=== PATIENT | female | born 1990 | race Hispanic/Latino ===

== ENCOUNTER 2025-06-29 18:19 | Observation (INO) | payer OTHER ==
[2025-06-29 19:21] LABS: #Basophils Less than 0.03 10x3/uL (0.0-0.2); #Eosinophils 0.06 10x3/uL (0.0-0.5); #Monocytes 0.41 10x3/uL (0.0-1.1); #Neutrophils 4.36 10x3/uL (1.5-8.4); %Basophils 0.3 % (0.0-2.0); %Eosinophils 0.9 % (0.0-6.0); %Lymphocytes 23.4 % (18.0-47.0); %Monocytes 6.4 % (0.0-10.0); %Neutrophils 68.5 % (40.0-75.0); Hematocrit 20.4 % (34.9-44.5); Hemoglobin 6.6 g/dL (12.0-15.5); Mean Corpuscular Hemoglobin 26.4 pg (27.0-33.0); Mean Corpuscular Volume 81.6 fL (81.6-98.3); Platelet Count 272 10x3/uL (150-450); Red Blood Cell (RBC) Count 2.50 10x6/uL (3.90-5.03); White Blood Cell (WBC) Count 6.37 10x3/uL (3.5-10.5)
[2025-06-29 19:36] LABS: ALT (SGPT) 15 U/L (Less than 34); AST (SGOT) 23 U/L (11-34); Albumin 3.6 g/dL (3.1-4.5); Alkaline Phosphatase 55 U/L (40-110); Anion Gap 15 mmol/L (10-20); BUN (Urea Nitrogen) 6 mg/dL (7.0-18.7); Bilirubin, Total 0.3 mg/dL (0.3-1.2); Calc. Creatinine Clearance 0 mL/min (70-130); Calcium 8.6 mg/dL (7.8-10.44); Carbon Dioxide 20 mmol/L (22-29); Chloride 107 mmol/L (98-107); Globulin 3.0 g/dL (2.4-3.5); Glucose 108 mg/dL (70-105); Potassium 3.7 mmol/L (3.5-5.1); Sodium 138 mmol/L (136-145)
[2025-06-29 19:41] LABS: BHCG - Serum POSITIVE (NEGATIVE); Pregs Control Background? CLEAR/WHITE (CLR/WHITE); Pregs Control Bar Appear? YES (CONTROL BAR)
[2025-06-29 19:59] LABS: Glucose, Urine (Dipstick) Normal (Negative); Leukocyte 25 (Negative); Protein, Urine (Dipstick) 100 mg/dl (Neg-Trace); Specific Gravity, Urine 1.030 (1.005-1.030)
[2025-06-29 20:10] LABS: Other Microscopic Description Less than 2 mL rec'd
[2025-06-29 20:12] LABS: RBC/HPF Greater than 50 HPF (0-3)
[2025-06-29 20:13] LABS: Bacteria/HPF 2+ HPF (None Seen); Mucous/LPF 1+ LPF (<2+)
[2025-06-29 20:15] LABS: CAUTI Indications for Culture < 2yrs of age
[2025-06-29 20:16] LABS: Urine Culture Reflex Yes Yes
[2025-06-29] MEDS ORDERED: Acetaminophen 500 MG TAB PO PRN (21:07)
[2025-06-29] MEDS ORDERED: Ondansetron PF 4 MG/2 ML Vial IVP PRN (21:07)
[2025-06-29] MEDS ORDERED: Ibuprofen 800 MG TAB PO PRN (21:15)
[2025-06-29] MEDS: Clindamycin/D5W 900 MG in Premix 1 BAG IVPB SCH (23:22)
[2025-06-30] MEDS: Ibuprofen 800 MG TAB PO SCH (00:08)
[2025-06-30] MEDS: Methylergonovine 0.2 MG/ML VIAL IM SCH ×2 (00:08→05:40)
[2025-06-30] MEDS: cefTRIAXone\\ROCEPHIN 2 GM in Sodium Chloride 0.9% 100 ML IVPB SCH (00:08)
[2025-06-30] MEDS: GENTAMICIN SULFATE IVPB SCH (00:58)
[2025-06-30] MEDS: SODIUM CHLORIDE IVPB SCH (00:58)
[2025-06-30] MEDS: ADMIXTURE FEE IVPB SCH (00:58)
[2025-06-30 07:02] LABS: #Basophils Less than 0.03 10x3/uL (0.0-0.2); #Eosinophils 0.19 10x3/uL (0.0-0.5); #Monocytes 0.49 10x3/uL (0.0-1.1); #Neutrophils 2.78 10x3/uL (1.5-8.4); %Basophils 0.4 % (0.0-2.0); %Eosinophils 3.4 % (0.0-6.0); %Lymphocytes 37.4 % (18.0-47.0); %Monocytes 8.7 % (0.0-10.0); %Neutrophils 49.6 % (40.0-75.0); Hematocrit 24.1 % (34.9-44.5); Hemoglobin 7.7 g/dL (12.0-15.5); Mean Corpuscular Hemoglobin 26.6 pg (27.0-33.0); Mean Corpuscular Volume 83.4 fL (81.6-98.3); Platelet Count 205 10x3/uL (150-450); Red Blood Cell (RBC) Count 2.89 10x6/uL (3.90-5.03); White Blood Cell (WBC) Count 5.61 10x3/uL (3.5-10.5)
[2025-06-30] MEDS: Ferrous Sulfate 325 MG TAB PO SCH (08:25)
[2025-06-30] MEDS ORDERED: Carboprost 250 MCG/ML AMP ONE (16:29)
[2025-06-30] MEDS ORDERED: Tranexamic Acid 1,000 MG/10 ML VIAL ONE (16:29)
[2025-06-30] MEDS ORDERED: Methylergonovine 0.2 MG/ML VIAL ONE (16:29)
[2025-06-30] MEDS ORDERED: PROPOFOL 20 ML ONE (16:31)
[2025-06-30] MEDS ORDERED: Oxytocin 10 UNITS/ML VIAL ONE (17:14)
[2025-06-30 19:26] LABS: #Basophils Less than 0.03 10x3/uL (0.0-0.2); #Eosinophils 0.07 10x3/uL (0.0-0.5); #Monocytes 0.20 10x3/uL (0.0-1.1); #Neutrophils 4.50 10x3/uL (1.5-8.4); %Basophils 0.3 % (0.0-2.0); %Eosinophils 1.2 % (0.0-6.0); %Lymphocytes 20.4 % (18.0-47.0); %Monocytes 3.3 % (0.0-10.0); %Neutrophils 74.0 % (40.0-75.0); Hematocrit 26.1 % (34.9-44.5); Hemoglobin 8.5 g/dL (12.0-15.5); Mean Corpuscular Hemoglobin 27.2 pg (27.0-33.0); Mean Corpuscular Volume 83.7 fL (81.6-98.3); Platelet Count 223 10x3/uL (150-450); Red Blood Cell (RBC) Count 3.12 10x6/uL (3.90-5.03); White Blood Cell (WBC) Count 6.08 10x3/uL (3.5-10.5)
[2025-07-01 06:45] LABS: #Basophils Less than 0.03 10x3/uL (0.0-0.2); #Eosinophils Less than 0.03 10x3/uL (0.0-0.5); #Monocytes 0.37 10x3/uL (0.0-1.1); #Neutrophils 3.99 10x3/uL (1.5-8.4); %Basophils 0.2 % (0.0-2.0); %Eosinophils 0.3 % (0.0-6.0); %Lymphocytes 25.6 % (18.0-47.0); %Monocytes 6.2 % (0.0-10.0); %Neutrophils 67.2 % (40.0-75.0); Hematocrit 25.0 % (34.9-44.5); Hemoglobin 8.0 g/dL (12.0-15.5); Mean Corpuscular Hemoglobin 26.9 pg (27.0-33.0); Mean Corpuscular Volume 84.2 fL (81.6-98.3); Platelet Count 176 10x3/uL (150-450); Red Blood Cell (RBC) Count 2.97 10x6/uL (3.90-5.03); White Blood Cell (WBC) Count 5.94 10x3/uL (3.5-10.5)
[2025-07-01 08:12] VITALS: BP 100/49; TEMP 98
== END 2025-07-01 09:39 | disposition home or self-care (01) ==
LOC: EEVIPCON 18:19 → CSHERS 18:19 → CSHPP 21:13 → INTOOBSV 21:13
PROVIDERS: ADMIT Obstetrics & Gynecology; ATTEND Obstetrics & Gynecology
PROC: 10A07Z6 Abortion of Products of Conception, Vacuum, Via Natural or Artificial Opening (ICD-10-PCS; principal; 2025-06-30)
DX: O02.1 Missed abortion (principal); D62 Acute posthemorrhagic anemia; N85.8 Other specified noninflammatory disorders of uterus
CPT/HCPCS: 36415; 36430; 76856; 80053; 81001; 84702; 84703; 85025; 86850; 86900; 86901; 87077; 87086; 88305; 93005; 93010; 96372; 96374; 96375; G0378; J0290; J0696; J1580; J2210; J2250; J2590; J2704; J3490; J7120; P9016